=== PATIENT | male | born 1950 | race Caucasian/White ===

== ENCOUNTER 2019-12-21 07:24 | Emergency (ER) | payer MEDICARE, OTHER ==
[~2019-12-21] VITALS: Ht 170.2 cm; Wt 55.4 kg
[2019-12-21] MEDS ORDERED: NYST1000 PO (07:50)
[2019-12-21] MEDS ORDERED: TAMS-11 PO (07:50)
[2019-12-21] MEDS ORDERED: METH2.5T PO (07:50)
[2019-12-21] MEDS ORDERED: FOLI-17 PO (07:50)
[2019-12-21] MEDS ORDERED: CIPR500T3 PO (07:50)
[2019-12-21] MEDS ORDERED: MENT4PAS TP (07:50)
[2019-12-21] MEDS ORDERED: METF500T17 PO (07:50)
[2019-12-21] MEDS ORDERED: AMLO1CAP54 PO (07:50)
--- NOTE | 2019-12-21 07:50 | NUR ---
pt BIB [facility] c/o difficuly uinating x3 days. pt was reecntly dx with UTI and has had 2 days of PO ABX. p reports that he is urinating small frequent amounts but does not feel like he is empying his bladder. no other c/o at this time. pt is curently wearing abrief and states that he does nto want to take it off, but it is dry
--- NOTE | 2019-12-21 08:15 | NUR ---
pt brief removed. incontinent of stool. pt cleaned and luca care given. pt has some slight redness to testicular area and rectal area. pad placed under pt. preston inserted per order. well olerated. pt positioning for comfort
[2019-12-21 08:29] LABS: MEAN CORPUSCULAR HEMOGLOBIN 31.9 pg (27.5-34.5); MEAN CORPUSCULAR HGB CONC 33.9 g/dL (33.2-36.2); MEAN PLATELET VOLUME 7.8 fL (7.4-10.4); PLATELET COUNT 362 x10^3/uL (130-400); RED BLOOD COUNT 4.61 x10^6/uL (4.38-5.82); RED CELL DISTRIBUTION WIDTH 14.4 % (9.4-14.8)
[2019-12-21 08:34] LABS: ANION GAP 9 mmol/L (5-15); CALCIUM 8.5 mg/dL (8.5-10.1); CHLORIDE 106 mmol/L (98-107); CREATININE 0.47 mg/dL (0.7-1.3)
[2019-12-21] MEDS ORDERED: POTASSIUM CHLORIDE 20 MEQ TAB.ER.PRT PO ONE (09:00)
[2019-12-21 09:03] LABS: MICROSCOPIC AUTO
[2019-12-21 09:06] LABS: CULTURE INDICATED? YES
[2019-12-21 09:30] LABS: BASOPHILS % (AUTO) 0 % (0-1); EOSINOPHILS % (AUTO) 0 % (1-7); LYMPHOCYTES # (AUTO) 0.48 x10^3/uL (1-3.4); LYMPHOCYTES % (AUTO) 4 % (22-44); MD SCAN; MONOCYTES # (AUTO) 0.67 x10^3/uL (0.2-0.8); MONOCYTES % (AUTO) 5 % (2-9); NEUTROPHILS # (AUTO) 11.32 x10^3/uL (1.8-6.8); NEUTROPHILS % (AUTO) 91 % (42-75)
[2019-12-21] MEDS ORDERED: POTASSIUM CHLORIDE 20 MEQ TAB.ER.PRT ONE (09:46)
--- NOTE | 2019-12-21 10:00 | NUR ---
pt restin in posiion of comfort. dozing intermittently. no new c/o. awaiting test results. updated on POC
--- NOTE | 2019-12-21 10:49 | NUR ---
pt is ready for D/C. per pt to D/C with oley in place. 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 Boris at [phone]
--- NOTE | 2019-12-21 11:08 | NUR ---
leg bag placed
[2019-12-21 12:07] VITALS: BP 116/74
== END 2019-12-21 12:13 | disposition home or self-care (01) ==
LOC: ED 09:35
DX: N40.1 Benign prostatic hyperplasia with lower urinary tract symptoms (principal); R33.8 Other retention of urine; N30.00 Acute cystitis without hematuria; E87.6 Hypokalemia; I51.7 Cardiomegaly; F17.210 Nicotine dependence, cigarettes, uncomplicated; Z85.828 Personal history of other malignant neoplasm of skin
CPT/HCPCS: 36415; 51702; 80048; 81001; 82040; 85025; 87077; 87086; 87186; 93005; 99284